=== PATIENT | male | born 1940 | race Caucasian/White ===

== ENCOUNTER 2018-12-11 09:02 | Outpatient (CLI) | payer OTHER | END 2018-12-11 12:34 | disposition home or self-care (01) | LOC: SONOGRAMA 09:02 | DX: E04.2 Nontoxic multinodular goiter (principal) ==

== ENCOUNTER → 2019-04-02 | Outpatient (CLI) | payer OTHER | END | disposition home or self-care (01) | LOC: SONOGRAMA 09:33 | DX: E04.2 Nontoxic multinodular goiter (principal) ==

== ENCOUNTER 2019-07-23 09:59 | Outpatient (CLI) | payer OTHER | END 2019-07-23 10:14 | disposition home or self-care (01) | LOC: SONOGRAMA 09:59 | DX: E04.2 Nontoxic multinodular goiter (principal) ==

== ENCOUNTER 2023-03-11 10:21 | Outpatient (CLI) | payer OTHER | END 2023-03-11 10:27 | disposition home or self-care (01) | LOC: SONOGRAMA 10:21 | PROVIDERS: ATTEND Pathology Anatomic Pathology & Clinical Pathology | DX: D34 Benign neoplasm of thyroid gland (principal) ==